=== PATIENT | male | born 1980 | race Two or more races ===

== ENCOUNTER 2016-08-20 18:59 | Emergency (ER) | payer OTHER ==
[~2016-08-20 18:59] MED LIST: AMITRYPTYLINE PO; ATARAX; DEPAKOTE PO; NEURONTIN800 MG PO
[2016-08-20 20:02] LABS: BUN/CREATININE RATIO 14.54; CREATININE SERUM 1.1 mg/dL (0.6-1.4)
[2016-08-20 20:03] LABS: CALCIUM SERUM 9.1 mg/dL (8.4-10.2); GLOM FILT RATE Estimated 85.3 mL/min (>60); POTASSIUM 4.4 mmol/L (3.5-5.1)
[2016-08-20 20:19] LABS: URINE SOURCE CLEAN CATCH
[2016-08-20 20:22] LABS: URINE APPEARANCE CLEAR; URINE BILIRUBIN NEG (NEG); URINE BLOOD NEG (NEG); URINE COLOR YELLOW; URINE GLUCOSE NEG (NORM); URINE KETONE NEG (NEG); URINE LEUKOCYTE ESTERASE NEG (NEG); URINE NITRATE NEG (NEG); URINE PH 6.5 (5-8); URINE PROTEIN NEG (NEG)
[2016-08-20 20:23] LABS: MICRO INDICATED? NO
[2016-08-20 20:41] LABS: AMPHETAMINE NEG (NEG); BARBITURATES NEG (NEG); BENZODIAZEPINES NEG (NEG); COCAINE NEG (NEG); MARIJUANA POS (NEG); OPIATES NEG (NEG); TRICYCLIC ANTIDEPRESSANTS POS (NEG); U METHADONE NEG (NEG)
== END 2016-08-20 21:09 | disposition home or self-care (01) ==
LOC: SED 18:59
PROVIDERS: Emergency Medicine
DX: G40.909 Epilepsy, unspecified, not intractable, without status epilepticus (principal); S00.512A Abrasion of oral cavity, initial encounter; X58.XXXA Exposure to other specified factors, initial encounter
CPT/HCPCS: 36415; 80048; 80164; 80307; 81003; 99284

== ENCOUNTER → 2016-09-12 | Outpatient (CLI) | payer OTHER ==
--- NOTE | ~2016-09-12 | CR141 ---
[facility] A Service of [facility] RADIOLOGY TEXT RESULTS PATIENT: ABEL HOWARD LOCATION: [facility] : 78 UNIT #: [id number] AGE: [address]: Mervat Stuart SEX: M ORDER DR: [id number] [place] [id number] O MR#: [id number] Acc #: [id number] NAME: ABEL HOWARD : 1980 SEX: M STUDY DATE/TIME: 09/12/2016 9:34 UNIT: SRAD ROOM: STUDY DESCRIPTION: CR Hand Min 3 Views Lt Attending Physician: Mervat Stuart A.P.R.N. Referring Physician: Mervat Stuart A.P.R.N. Ordering Physician: Mervat Stuart A.P.R.N. Primary Care Physician: Jaylen Murrell M.D. MEDICAL IMAGING REPORT This report is preliminary unless electronic signature is present. EXAM Left hand 3 views HISTORY History is fourth digit pain after fall and injury 2 weeks ago. Finger swelling. FINDINGS 3 views of the left hand demonstrate mild soft tissue swelling of the fourth digit at the level of the middle phalanx. Bone alignment is satisfactory. No fracture or joint space narrowing or dislocation. No opaque soft tissue foreign body. Dictated by... Rambo Camacho M.D. THIS IS AN ELECTRONICALLY VERIFIED REPORT Rambo Camacho M.D. at 09/12/2016 10:12 PM DFL/pcl TD: 09/12/2016 21:49 JOB #: [id number] MEDICAL IMAGING REPORT Page 1 of 1
== END | disposition home or self-care (01) ==
LOC: SRAD 09:29
DX: S69.92XA Unspecified injury of left wrist, hand and finger(s), initial encounter (principal)
CPT/HCPCS: 73130